=== PATIENT | male | born 1995 | race African-American/Black ===

== ENCOUNTER 2017-06-19 18:54 | Emergency (ER) | payer OTHER ==
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
--- NOTE | 2017-06-19 22:55 | RADIOLOGY REPORT ---
EXAMINATION: XR CERVICAL SPINE CLINICAL INFORMATION: Neck pain COMPARISON: None TECHNIQUE: AP, lateral and odontoid views of the cervical spine were obtained. FINDINGS: The C5 and C5 T1 junction are not clearly seen on the lateral view. The vertebral alignment is normal. The vertebral body and disc heights are well maintained. The endplates and posterior elements are normal. No acute fracture or subluxation. The surrounding prevertebral soft tissues are unremarkable. IMPRESSION: No acute fracture or dislocation of the cervical spine, considering limitations.
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
[2017-06-19] MEDS ORDERED: MOBIC15 M1 PO (23:18)
[2017-06-19] MEDS ORDERED: CYCLOBENZAPRINE10 M1 PO (23:18)
[2017-06-19 23:29] VITALS: BP 134/77
== END 2017-06-19 23:32 ==
LOC: ERH 18:54
DX: M54.2 Cervicalgia (principal); M54.5 Low back pain; M25.561 Pain in right knee; M25.562 Pain in left knee; V43.62XA Car passenger injured in collision with other type car in traffic accident, initial encounter
CPT/HCPCS: 72050; 72070; 72110; 73562-RT